=== PATIENT | male | born 1960 | race Caucasian/White ===

== ENCOUNTER → 2016-10-25 | Outpatient (CLI) | payer OTHER | END | disposition home or self-care (01) | LOC: CFH 10:31 | PROVIDERS: ATTEND Internal Medicine Cardiovascular Disease | DX: I08.1 Rheumatic disorders of both mitral and tricuspid valves (principal); I37.1 Nonrheumatic pulmonary valve insufficiency; I10 Essential (primary) hypertension | CPT/HCPCS: 93306 ==

== ENCOUNTER → 2017-07-01 | Outpatient (CLI) | payer OTHER | END | disposition home or self-care (01) | LOC: RAD 08:14 | PROVIDERS: ATTEND Internal Medicine Cardiovascular Disease | DX: I45.10 Unspecified right bundle-branch block (principal) | CPT/HCPCS: 78452; 93017; A9502 ==

== ENCOUNTER 2018-07-25 09:47 | Day surgery (SDC) | payer OTHER ==
[~2018-07-25] VITALS: Ht 177.8 cm; Wt 113.6 kg
[2018-07-25] MEDS ORDERED: SODIUM CHLORIDE 0.9% 1,000 ML IV SCH (11:00)
[2018-07-25 11:07] VITALS: BP 119/88
[2018-07-25] MEDS ORDERED: AMOX-291 PO (11:19)
[2018-07-25] MEDS ORDERED: ATEN50TA41 PO (11:19)
[2018-07-25] MEDS ORDERED: VALS160T3 PO (11:19)
[2018-07-25] MEDS ORDERED: VALS1TAB24 PO (11:19)
[2018-07-25] MEDS ORDERED: AMLO-150 PO (11:19)
[2018-07-25] MEDS ORDERED: APIX5TAB PO (11:19)
[2018-07-25] MEDS ORDERED: ATOR20TA37 PO (11:19)
[2018-07-25] MEDS ORDERED: PROPOFOL 10 MG/ML, 20ML ONE (12:06)
== END 2018-07-25 13:22 | disposition home or self-care (01) ==
LOC: CACL 09:47
PROVIDERS: ATTEND Internal Medicine Cardiovascular Disease
DX: I48.91 Unspecified atrial fibrillation (principal); I34.0 Nonrheumatic mitral (valve) insufficiency; I36.1 Nonrheumatic tricuspid (valve) insufficiency; I10 Essential (primary) hypertension; E78.5 Hyperlipidemia, unspecified; I49.40 Unspecified premature depolarization; Z88.0 Allergy status to penicillin
CPT/HCPCS: 92960; 93312; 93321; 93325; J2704

== ENCOUNTER 2018-07-26 17:31 | Emergency (ER) | payer OTHER ==
[~2018-07-26] VITALS: Ht 177.8 cm; Wt 116.0 kg
[~2018-07-26 17:31] MED LIST: AMLO-150 PO; AMOX-291 PO; APIX5TAB PO; ATEN50TA41 PO; ATOR20TA37 PO; VALS160T3 PO; VALS1TAB24 PO
[2018-07-26] MEDS ORDERED: SODIUM CHLORIDE FLUSH 10ML SYR IVF ONE (18:00)
[2018-07-26 18:07] LABS: BASOPHILS # (AUTO) 0.02 x10^3/uL (0-0.1); BASOPHILS % (AUTO) 0 % (0-1); EOSINOPHILS # (AUTO) 0.07 x10^3/uL (0-0.4); EOSINOPHILS % (AUTO) 1 % (1-7); LYMPHOCYTES # (AUTO) 3.06 x10^3/uL (1-3.4); LYMPHOCYTES % (AUTO) 30 % (22-44); MD NO; MEAN CORPUSCULAR HEMOGLOBIN 30.1 pg (27.5-34.5); MEAN CORPUSCULAR HGB CONC 34.3 g/dL (33.2-36.2); MEAN CORPUSCULAR VOLUME 87.9 fL (81-97); MEAN PLATELET VOLUME 9.9 fL (7.4-10.4); MONOCYTES # (AUTO) 0.79 x10^3/uL (0.2-0.8); MONOCYTES % (AUTO) 8 % (2-9); NEUTROPHILS # (AUTO) 6.29 x10^3/uL (1.8-6.8); NEUTROPHILS % (AUTO) 62 % (42-75); PLATELET COUNT 213 x10^3/uL (130-400); RED BLOOD COUNT 5.22 x10^6/uL (4.38-5.82); RED CELL DISTRIBUTION WIDTH 14.3 % (9.4-14.8)
[2018-07-26 18:19] LABS: CALCIUM 9.1 mg/dL (8.5-10.1); CREATININE 1.19 mg/dL (0.7-1.3)
[2018-07-26 18:20] LABS: ALANINE AMINOTRANSFERASE 44 U/L (12-78); ALBUMIN 4.6 g/dL (3.4-5.0)
[2018-07-26 18:25] LABS: ALKALINE PHOSPHATASE 91 U/L (45-117); BILIRUBIN,TOTAL 1.3 mg/dL (0.2-1.0); FREE T4 (FREE THYROXINE) 1.23 ng/dL (0.76-1.46); TOTAL PROTEIN 7.8 g/dL (6.4-8.2); TROPONIN I < 0.015 ng/mL (0.000-0.045)
[2018-07-26 18:39] LABS: ANION GAP 7 mmol/L (5-15); CHLORIDE 108 mmol/L (98-107)
[2018-07-26] MEDS ORDERED: DILTIAZEM 5 MG/ML, 5ML IVPush STA (18:46)
[2018-07-26 18:49] LABS: THYROID STIMULATING HORMONE 0.977 mIU/L (0.358-3.740)
[2018-07-26] MEDS ORDERED: DILTIAZEM 5 MG/ML, 10ML ONE ×2 (18:50→19:59)
--- NOTE | 2018-07-26 19:28 | NUR ---
Report from TESS Lin. Patient remains in afib with RVR. aware. NAD. No other needs at this time.
[2018-07-26] MEDS ORDERED: DILTIAZEM 5 MG/ML, 5ML IVPush ONE (20:00)
--- NOTE | 2018-07-26 20:08 | NUR ---
Rebolus of cardizem admin. Plan is to cardiovert after rebolus.
[2018-07-26] MEDS ORDERED: PROPOFOL 10 MG/ML, 20ML ONE (20:09)
--- NOTE | 2018-07-26 20:22 | NUR ---
Ready for cardioversion. Awaiting
[2018-07-26] MEDS ORDERED: PROPOFOL 10 MG/ML, 20ML IVP ONE (20:30)
--- NOTE | 2018-07-26 20:48 | NUR ---
Cardioversion for afib with RVR with procedural sedation performed by MD Blaise and TESS Crooks. 150 mg IV propofol admin. Patient successfully cardioverted into a NSR. VSS. [facility] comfortably [facility]. Will continue to monitor. See paper charting for more details.
--- NOTE | 2018-07-26 21:08 | NUR ---
Provided with blanket. Report to TESS Lewis.
--- NOTE | 2018-07-26 21:11 | NUR ---
received report from TESS Crooks.
--- NOTE | 2018-07-26 21:47 | NUR ---
patient awake, alert and oriented. VSS. discharged with prescriptions and instructions. verbalized understanding. wheeled to lobby.
[2018-07-26 21:49] VITALS: BP 120/81
== END 2018-07-26 21:51 | disposition home or self-care (01) ==
LOC: ED 21:26
DX: I48.0 Paroxysmal atrial fibrillation (principal); K08.89 Other specified disorders of teeth and supporting structures; Z79.01 Long term (current) use of anticoagulants; I10 Essential (primary) hypertension; I48.91 Unspecified atrial fibrillation; E78.5 Hyperlipidemia, unspecified; Z88.0 Allergy status to penicillin
CPT/HCPCS: 36415; 71045; 80053; 83735; 84439; 84443; 84484; 85025; 92960; 93005; 99291; J2704

== ENCOUNTER 2019-12-11 11:25 | Inpatient (IN) | payer OTHER ==
[~2019-12-11] VITALS: Ht 177.8 cm; Wt 109.5 kg
[~2019-12-11 11:25] MED LIST changes: +METO25TA2 PO; -VALS1TAB24 PO; +VALS1TAB25 PO
--- NOTE | 2019-12-11 11:31 | NUR ---
EKG IN TRIAGE
--- NOTE | 2019-12-11 11:38 | NUR ---
"I WAS AT [facility] YESTERDAY FOR BASAL CARCINOMA REMOVAL. THEY NOTICED MY HR WAS UP. THEY GAVE ME IV METOPROLOL. THEY CANCELLED MY SURGERY AND TOLD ME TO FOLLOW UP WITH MY HEART DR BECAUSE THEY COULDN'T GET MY HEART RATE DOWN. I SAW HER AND SHE SENT ME HERE. SHE SAID I AM IN AFIB. SHE SAID WE ARE GOING TO DO A AMOL, A CARDIOVERT AND CHANGE MY MEDICATIONS. THAT I WOULD HAVE TO STAY THE NIGHT AND SEE HOW IT GOES. " NO C/O CP, SOB, DIZZINESS, N/V/D, TRAUMA, PT PLACED ON CONT PULSE OX, NIBP, ELECTRONIC TESTER. NO ACUTE DISTRESS NOTED.
[2019-12-11] MEDS ORDERED: SODIUM CHLORIDE 0.9% 1,000 ML IV ONE ×2 (12:17→13:05)
[2019-12-11] MEDS ORDERED: DILTIAZEM 5 MG/ML, 5ML ONE ×2 (12:21→13:53)
--- NOTE | 2019-12-11 12:26 | NUR ---
20MG CARDIZEM GIVEN OVER 5 MINUTES W/ LITTLE EFFECT.
[2019-12-11 12:28] LABS: BASOPHILS # (AUTO) 0.04 x10^3/uL (0-0.1); BASOPHILS % (AUTO) 0 % (0-1); EOSINOPHILS # (AUTO) 0.02 x10^3/uL (0-0.4); EOSINOPHILS % (AUTO) 0 % (1-7); LYMPHOCYTES # (AUTO) 2.33 x10^3/uL (1-3.4); LYMPHOCYTES % (AUTO) 20 % (22-44); MD NO; MEAN CORPUSCULAR HEMOGLOBIN 29.4 pg (27.5-34.5); MEAN CORPUSCULAR HGB CONC 33.5 g/dL (33.2-36.2); MEAN PLATELET VOLUME 9.4 fL (7.4-10.4); MONOCYTES # (AUTO) 0.59 x10^3/uL (0.2-0.8); MONOCYTES % (AUTO) 5 % (2-9); NEUTROPHILS # (AUTO) 8.43 x10^3/uL (1.8-6.8); NEUTROPHILS % (AUTO) 74 % (42-75); PLATELET COUNT 256 x10^3/uL (130-400); RED BLOOD COUNT 5.32 x10^6/uL (4.38-5.82); RED CELL DISTRIBUTION WIDTH 13.8 % (9.4-14.8)
[2019-12-11] MEDS ORDERED: DILTIAZEM 5 MG/ML, 5ML IV ONE (12:30)
[2019-12-11] MEDS ORDERED: SODIUM CHLORIDE FLUSH 10ML SYR IVF ONE (12:30)
[2019-12-11 12:38] LABS: ALANINE AMINOTRANSFERASE 30 U/L (12-78); ALBUMIN 4.4 g/dL (3.4-5.0); ANION GAP 8 mmol/L (5-15); CALCIUM 9.4 mg/dL (8.5-10.1); CHLORIDE 107 mmol/L (98-107); CREATININE 0.96 mg/dL (0.7-1.3)
[2019-12-11 12:40] LABS: ALKALINE PHOSPHATASE 100 U/L (45-117); BILIRUBIN,TOTAL 1.3 mg/dL (0.2-1.0); TOTAL PROTEIN 7.8 g/dL (6.4-8.2)
--- NOTE | 2019-12-11 12:54 | NUR ---
LATE ENTRY FOR 1236 RECEIVED BEDSIDE REPORT FROM TESS MORRISON.
[2019-12-11] MEDS ORDERED: SODIUM CHLORIDE FLUSH 10ML SYR IVF PRN (13:30)
--- NOTE | 2019-12-11 13:38 | NUR ---
REPORT TO TESS MILES. ALL QUESTIONS ANSWERED.
[2019-12-11] MEDS ORDERED: VALS1TAB30 PO (13:41)
--- NOTE | 2019-12-11 13:42 | NUR ---
PT ASKED IF HE IS HAVING ANY CHEST PAIN. PT RESPONDS "NO, NO CHEST PAIN." ODILONN.
[2019-12-11] MEDS ORDERED: DILTIAZEM 5 MG/ML, 5ML IVPush ONE (14:00)
--- NOTE | 2019-12-11 14:00 | NUR ---
MEDICATION ADMINISTERED PER ORDER. 25 MG DILTIAZEM. PT HR NOW [phone]. PT DENIES ANY SOB, CP, OR ANY PAIN . NADN.
--- NOTE | 2019-12-11 14:25 | NUR ---
PT TRANSFERRED TO FLOOR. PT LEFT WITH ALL PERSONAL BELONGINGS.
[2019-12-11 14:26] VITALS: BP 129/79
[2019-12-11] MEDS ORDERED: BISACODYL 10 MG SUPP PR PRN (15:30)
[2019-12-11] MEDS ORDERED: BISACODYL 5 MG EC TABLET PO PRN (15:30)
[2019-12-11] MEDS ORDERED: ONDANSETRON 2MG/ML, 2ML IVPush PRN (15:30)
[2019-12-11] MEDS ORDERED: ZOLPIDEM 5MG TABLET PO PRN (15:30)
[2019-12-11] MEDS ORDERED: ACETAMINOPHEN 325 MG TABLET PO PRN (15:30)
[2019-12-11 15:32] LABS: ANION GAP 5 mmol/L (5-15); CALCIUM 9.4 mg/dL (8.5-10.1); CHLORIDE 109 mmol/L (98-107); CHOLESTEROL, TOTAL 164 mg/dL (140-239); TRIGLYCERIDES 115 mg/dL (50-200); VLDL CHOLESTEROL 23 mg/dL (0-25)
[2019-12-11 15:36] LABS: CHOL/HDL RATIO 2.6; FREE T4 (FREE THYROXINE) 1.21 ng/dL (0.76-1.46); HDL CHOL % 39 % (26-37); HDL CHOLESTEROL (DIRECT) 64 mg/dL (40-60); LDL CHOLESTEROL,CALCULATED 77 mg/dL (54-169); LDL/HDL RATIO 1.2 (0.5-3.0); TROPONIN I < 0.015 ng/mL (0.000-0.045)
[2019-12-11] MEDS ORDERED: MIDAZOLAM 1 MG/ML, 5ML IVPush ONE (17:00)
[2019-12-11] MEDS ORDERED: MORPHINE SULFATE 4 MG/ML, 1ML IVPush ONE (17:00)
[2019-12-11] MEDS ORDERED: DILTIAZEM 5 MG/ML, 5ML IVPush PRN (17:30)
[2019-12-11 18:30] VITALS: BP 155/77
[2019-12-11 21:08] VITALS: BP 128/89
[2019-12-11] MEDS: ATORVASTATIN 20 MG TABLET PO SCH (21:09)
[2019-12-11] MEDS: SODIUM CHLORIDE FLUSH 3ML SYRINGE IVF SCH (21:09)
[2019-12-11] MEDS: SOTALOL 80MG TABLET PO SCH (21:09)
[2019-12-11] MEDS: APIXABAN 5 MG TABLET PO SCH (21:09)
[2019-12-11] MEDS: AMLODIPINE 5 MG TABLET PO SCH (21:09)
[2019-12-11 21:59] LABS: TROPONIN I < 0.015 ng/mL (0.000-0.045)
[2019-12-12 03:47] VITALS: BP 121/81
[2019-12-12 04:27] LABS: TROPONIN I < 0.015 ng/mL (0.000-0.045)
[2019-12-12] MEDS ORDERED: MIDAZOLAM 1 MG/ML, 5ML IVPush ONE (08:00)
[2019-12-12] MEDS ORDERED: MORPHINE SULFATE 4 MG/ML, 1ML IVPush ONE (08:00)
[2019-12-12 08:10] VITALS: BP 117/84
[2019-12-12] MEDS: APIXABAN 5 MG TABLET PO SCH ×2 (08:38→20:57)
[2019-12-12] MEDS: VALSARTAN 320 MG TABLET PO SCH (08:39)
[2019-12-12] MEDS: AMLODIPINE 5 MG TABLET PO SCH ×2 (08:40→20:58)
[2019-12-12] MEDS: SOTALOL 80MG TABLET PO SCH ×2 (08:41→20:58)
[2019-12-12] MEDS: HYDROCHLOROTHIAZIDE 25 MG TABLET PO SCH (08:41)
[2019-12-12] MEDS: SODIUM CHLORIDE FLUSH 3ML SYRINGE IVF SCH ×2 (09:00→20:58)
[2019-12-12] MEDS ORDERED: FENTANYL PF 100 MCG/2ML IVPush PRN (09:30)
[2019-12-12 15:00] VITALS: BP 110/71
[2019-12-12 20:03] VITALS: BP 113/73
[2019-12-12] MEDS: ATORVASTATIN 20 MG TABLET PO SCH (20:58)
[2019-12-13 01:04] VITALS: BP 96/63
[2019-12-13 07:33] VITALS: BP 114/73
[2019-12-13] MEDS: AMLODIPINE 5 MG TABLET PO SCH ×2 (08:50→20:11)
[2019-12-13] MEDS: VALSARTAN 320 MG TABLET PO SCH (08:51)
[2019-12-13] MEDS: APIXABAN 5 MG TABLET PO SCH ×2 (08:51→20:11)
[2019-12-13] MEDS: HYDROCHLOROTHIAZIDE 25 MG TABLET PO SCH (08:51)
[2019-12-13] MEDS: SOTALOL 80MG TABLET PO SCH ×2 (08:51→20:12)
[2019-12-13] MEDS: SODIUM CHLORIDE FLUSH 3ML SYRINGE IVF SCH ×2 (08:52→20:11)
[2019-12-13] MEDS ORDERED: LOPERAMIDE 2 MG CAPSULE PO PRN (10:00)
[2019-12-13 13:18] VITALS: BP 112/68
[2019-12-13] MEDS: ATORVASTATIN 20 MG TABLET PO SCH (20:11)
[2019-12-13 20:12] VITALS: BP 119/77
[2019-12-14 01:45] VITALS: BP 109/71
[2019-12-14 05:26] LABS: ANION GAP 7 mmol/L (5-15); CALCIUM 9.1 mg/dL (8.5-10.1); CHLORIDE 107 mmol/L (98-107); CREATININE 0.95 mg/dL (0.7-1.3)
[2019-12-14] MEDS: SOTALOL 80MG TABLET PO SCH (05:57)
[2019-12-14] MEDS ORDERED: POTASSIUM CHLORIDE 20 MEQ TAB.ER.PRT PO ONE (08:00)
[2019-12-14] MEDS ORDERED: SOTA80TA18 PO (08:02)
[2019-12-14 08:12] VITALS: BP 129/85
[2019-12-14] MEDS: VALSARTAN 320 MG TABLET PO SCH (08:15)
[2019-12-14] MEDS: APIXABAN 5 MG TABLET PO SCH (08:15)
[2019-12-14] MEDS: SODIUM CHLORIDE FLUSH 3ML SYRINGE IVF SCH (08:16)
[2019-12-14] MEDS: HYDROCHLOROTHIAZIDE 25 MG TABLET PO SCH (08:16)
[2019-12-14] MEDS: AMLODIPINE 5 MG TABLET PO SCH (08:16)
== END 2019-12-14 10:11 | disposition home or self-care (01) | DRG 309 ==
LOC: ED 12:03 → EDIP 13:05 → 5SO 14:37 → DCLOUNGE 12-14 10:04
PROVIDERS: ADMIT Internal Medicine Cardiovascular Disease; ATTEND Internal Medicine Cardiovascular Disease
PROC: 5A2204Z Restoration of Cardiac Rhythm, Single (ICD-10-PCS; principal; 2019-12-12)
DX: I48.0 Paroxysmal atrial fibrillation (principal); D68.69 Other thrombophilia; C44.712 Basal cell carcinoma of skin of right lower limb, including hip; E78.5 Hyperlipidemia, unspecified; I10 Essential (primary) hypertension; I34.0 Nonrheumatic mitral (valve) insufficiency; I34.1 Nonrheumatic mitral (valve) prolapse; I49.3 Ventricular premature depolarization; Z79.899 Other long term (current) drug therapy; Z87.891 Personal history of nicotine dependence; Z88.0 Allergy status to penicillin; Z79.01 Long term (current) use of anticoagulants
CPT/HCPCS: 36415; 71045; 80048; 80053; 80061; 84439; 84443; 84484; 85014; 85018; 85025; 93005; 93306; 96361; 96374; 99291; G0378; J2250; J3010; J7030

== ENCOUNTER 2020-05-04 14:54 | Emergency (ER) | payer OTHER ==
[~2020-05-04] VITALS: Ht 177.8 cm; Wt 111.8 kg
[~2020-05-04 14:54] MED LIST changes: +SOTA80TA18 PO; +VALS1TAB30 PO
--- NOTE | 2020-05-04 15:38 | NUR ---
PT HAS CO COVID SYMPTOMS FOR 3 DAYS, FATIGUE, CHILLS, BODY ACHES. HX OF AFIB ON ELIQUIS. DENIES CP, FEVER OR COUGH.
--- NOTE | 2020-05-04 16:12 | NUR ---
MD HOPSON AT BEDSIDE. PT RATE ON MONITOR 100-140 AFIB.
[2020-05-04] MEDS ORDERED: METOPROLOL 1 MG/ML, 5ML ONE (16:13)
[2020-05-04 16:20] LABS: BASOPHILS % (AUTO) 0 % (0-1); EOSINOPHILS % (AUTO) 0 % (1-7); LYMPHOCYTES % (AUTO) 20 % (22-44); MEAN CORPUSCULAR HEMOGLOBIN 28.8 pg (27.5-34.5); MEAN CORPUSCULAR HGB CONC 34.1 g/dL (33.2-36.2); MEAN PLATELET VOLUME 8.9 fL (7.4-10.4); MONOCYTES % (AUTO) 11 % (2-9); NEUTROPHILS % (AUTO) 69 % (42-75); PLATELET COUNT 167 x10^3/uL (130-400); RED BLOOD COUNT 5.18 x10^6/uL (4.38-5.82); RED CELL DISTRIBUTION WIDTH 14.3 % (9.4-14.8)
[2020-05-04 16:25] LABS: ALBUMIN 3.9 g/dL (3.4-5.0); ANION GAP 5 mmol/L (5-15); CALCIUM 8.6 mg/dL (8.5-10.1); CHLORIDE 103 mmol/L (98-107); MD NO
[2020-05-04 16:30] LABS: ALANINE AMINOTRANSFERASE 29 U/L (12-78); ALKALINE PHOSPHATASE 124 U/L (45-117); BILIRUBIN,TOTAL 0.9 mg/dL (0.2-1.0); CREATININE 1.02 mg/dL (0.7-1.3); TROPONIN I < 0.015 ng/mL (0.000-0.045)
[2020-05-04] MEDS ORDERED: METOPROLOL 1 MG/ML, 5ML IVPush PRN (16:30)
[2020-05-04] MEDS ORDERED: SODIUM CHLORIDE FLUSH 10ML SYR IVF ONE (16:30)
--- NOTE | 2020-05-04 16:33 | NUR ---
PIV, LABS, BLOOD CULTURES ESTABLSIHED. ORTHOSTATIC VITALS COMPLETED. 5MG METOPROLOL IVP PER ORDERS. PT UPDATED ON POC.
[2020-05-04] MEDS ORDERED: DILTIAZEM 125 MG in SODIUM CHLORIDE 0.9% 100 ML IV ONE (18:00)
[2020-05-04] MEDS ORDERED: PROPOFOL 10 MG/ML, 20ML ONE (18:16)
[2020-05-04] MEDS ORDERED: PROPOFOL 10 MG/ML, 20ML IVPush ONE (18:30)
[2020-05-04] MEDS ORDERED: CEFTRIAXONE PMX 1GM/50ML 50 ML IV ONE (18:30)
[2020-05-04] MEDS ORDERED: CEFTRIAXONE PMX 1GM/50ML 50 ML ONE (18:43)
--- NOTE | 2020-05-04 18:43 | NUR ---
DEBORAH RN: CARDIOVERSION WITH SEDATION DONE. PT TOLERATED WELL. 70 MG OF PROPOFOL GIVEN BY DR HOPSON. VS STABLE. CARNIVAL WORKER ON. PT IS NOW IN NSR. PT IS A&OX4. CALL LIGHT IN PLACE. REPORT GIVEN TO TESS GARCIA
--- NOTE | 2020-05-04 18:49 | NUR ---
REPORT TO SHITAL
--- NOTE | 2020-05-04 18:49 | NUR ---
BEDSIDE REPORT FROM JD PULIDO, PT CARE TRANSFERRED AT THIS TIME. WCTM.
--- NOTE | 2020-05-04 19:35 | NUR ---
RN AT BS FOR POST PROCEDURAL SED VITALS, VSS. RN DISCUSSED WITH PT OPTION TO STAY IN THE HOSPITAL FOR OBSERVATION, PT DECLINED STATING "IF ITS OKAY WITH THE DOCTORS, I WOULD RATHER GO HOME." PT NAD AT THIS TIME, ANOx4, DENIES N/V, GROSS NEURO INTACT, PT EDUCATED ON REASONS TO COME BACK TO THE ED AND TO MONITOR O2 SATS AT HOME WITH FINGER PULSE OX. PT CURRENTLY OXYGENATING WELL AT 98% RA, RESP EVEN AND UNLABORED AT 17 BREATHS PER MIN, NO COUGHING NOTED. WCTM.
[2020-05-04 20:09] VITALS: BP 116/62
--- NOTE | 2020-05-04 20:11 | NUR ---
Patient given discharge instructions and they have confirmed that they understand the instructions. Patient ambulatory with steady gait. NAD, DENIES ADDITIONAL NEEDS, ALL QUESTIONS ANSWERED APPROPRIATELY. NO PERSONAL BELONGINGS LEFT IN ROOM AFTER DC. PT PROVIDING RIDE HOME.
== END 2020-05-04 20:13 | disposition home or self-care (01) ==
LOC: ED 15:36
DX: J15.9 Unspecified bacterial pneumonia (principal); Z20.828 Contact with and (suspected) exposure to other viral communicable diseases; R42 Dizziness and giddiness; R00.1 Bradycardia, unspecified; I48.91 Unspecified atrial fibrillation; I10 Essential (primary) hypertension; E78.5 Hyperlipidemia, unspecified
CPT/HCPCS: 71045; 80053; 83605; 83735; 83880; 84145; 84484; 85025; 87040; 87635; 92960; 93005; 96365; 96375; 99291; J0696; J2704

== ENCOUNTER 2020-12-13 09:59 | Day surgery (SDC) | payer OTHER ==
[~2020-12-13] VITALS: Ht 177.8 cm; Wt 125.0 kg
[2020-12-13] MEDS ORDERED: DOXA4TAB3 PO (11:08)
[2020-12-13] MEDS ORDERED: SOTA80TA18 PO (11:08)
[2020-12-13 11:41] LABS: BASOPHILS % (AUTO) 1 % (0-1); EOSINOPHILS % (AUTO) 1 % (1-7); LYMPHOCYTES % (AUTO) 24 % (22-44); MEAN CORPUSCULAR HEMOGLOBIN 28.5 pg (27.5-34.5); MEAN PLATELET VOLUME 8.8 fL (7.4-10.4); MONOCYTES % (AUTO) 7 % (2-9); NEUTROPHILS % (AUTO) 68 % (42-75); PLATELET COUNT 188 x10^3/uL (130-400); RED BLOOD COUNT 5.31 x10^6/uL (4.38-5.82); RED CELL DISTRIBUTION WIDTH 14.8 % (9.4-14.8)
[2020-12-13 11:50] LABS: ANION GAP 4 mmol/L (5-15); CALCIUM 9.3 mg/dL (8.5-10.1); CHLORIDE 107 mmol/L (98-107); CREATININE 0.94 mg/dL (0.7-1.3)
[2020-12-13] MEDS ORDERED: PROPOFOL 10 MG/ML, 20ML ONE (12:16)
== END 2020-12-13 13:01 | disposition home or self-care (01) ==
LOC: CACL 09:59
PROVIDERS: ATTEND Internal Medicine Clinical Cardiac Electrophysiology
DX: I48.91 Unspecified atrial fibrillation (principal); I34.0 Nonrheumatic mitral (valve) insufficiency; I10 Essential (primary) hypertension; E78.5 Hyperlipidemia, unspecified; E66.9 Obesity, unspecified; Z68.37 Body mass index [BMI] 37.0-37.9, adult; Z79.01 Long term (current) use of anticoagulants; Z79.899 Other long term (current) drug therapy; Z87.891 Personal history of nicotine dependence; Z88.0 Allergy status to penicillin; Z82.3 Family history of stroke; Z83.6 Family history of other diseases of the respiratory system
CPT/HCPCS: 36415; 80048; 85025; 92960; J2704